=== PATIENT | female | born 1960 | race Caucasian/White ===

== ENCOUNTER 2017-12-30 02:55 | Emergency (ER) | payer OTHER ==
[~2017-12-30] VITALS: Ht 139.7 cm; Wt 115.6 kg
[~2017-12-30 02:55] MED LIST: ADULT LOW DOSE81 M1 PO; CALCIUM + D3 E1 EACH PO; FISH OIL SOFTG1 EACH PO; GLUCOPHAGE1000 MG PO; HUMULIN N100 UNITS/ IM; HYDROCHLOROTHIA25 MG PO; LOVASTATIN40 MG PO; NOVOLIN N100 UNITS/ SC; OMEPRAZOLE40 M1 PO; PRINIVIL20 MG PO; ZESTRIL,PRINIVI20 MG PO; ZYRTEC10 M3 PO
[2017-12-30 03:45] LABS: HEMATOCRIT 38.4 % (36.0-46.0); MCH 24.4 PG (29.0-34.0); MCHC 31.3 G/DL (30.0-36.0); PLATELET COUNT 238 K/uL (156-360); RBC DIS.WIDTH-CV 17.1 % (11.8-14.6); RBC DIS.WIDTH-SD 47.7 % (39-53); RED BLOOD COUNT 4.92 M/uL (3.80-5.20); WHITE BLOOD COUNT 9.1 K/uL (4.1-10.2)
[2017-12-30 04:02] LABS: CHLORIDE 103 MEQ/L (99-109); POTASSIUM 3.8 MEQ/L (3.7-5.4); SODIUM 140 MEQ/L (136-147)
[2017-12-30 04:08] LABS: CREATININE 0.9 MG/DL (0.6-1.3); GFR ESTIMATE (CALCULATED) > 59 mL/min/; GLUCOSE 122 mg/dL (70-99); UREA NITROGEN (BUN) 19 mg/dL (9-23)
[2017-12-30] MEDS ORDERED: FLEXERIL10 MG PO (04:25)
[2017-12-30] MEDS ORDERED: NORCO 5/3251 TABLET PO (04:25)
[2017-12-30 05:09] VITALS: BP 135/83
[2017-12-30 07:38] LABS: TROP-I INTERPRETATION NEGATIVE; TROPONIN-I 0.02 ng/mL (0.0-0.30)
== END 2017-12-30 05:09 | disposition home or self-care (01) ==
LOC: EME 02:55
PROVIDERS: Emergency Medicine
DX: S46.912A Strain of unspecified muscle, fascia and tendon at shoulder and upper arm level, left arm, initial encounter (principal); S46.002A Unspecified injury of muscle(s) and tendon(s) of the rotator cuff of left shoulder, initial encounter; E11.9 Type 2 diabetes mellitus without complications; Z79.4 Long term (current) use of insulin
CPT/HCPCS: 73030; 80048; 84484; 85027; 93005; 99281; 99284